=== PATIENT | male | born 1945 | race Caucasian/White ===

== ENCOUNTER 2017-09-23 13:34 | Outpatient (CLI) | payer MEDICARE ==
--- NOTE | 2017-09-23 14:19 | RAD ---
TWO VIEWS CHEST: Comparison: 09-04-17 History: Dyspnea. FINDINGS: Two views of the chest shows a normal sized cardiomediastinal silhouette. There appears to be a calci fication best seen over the right chest measuring 15 mm in size. This may be within one of the ribs. There is no evidence of consolidation or pleural effusion. Degenerative changes are seen in the spine . IMPRESSION: No evidence of acute cardiopulmonary disease. POS: [facility]
== END 2017-09-23 13:35 | disposition home or self-care (01) ==
LOC: RAD 13:34
PROVIDERS: ATTEND Internal Medicine Pulmonary Disease
DX: R06.00 Dyspnea, unspecified (principal)
CPT/HCPCS: 71046

== ENCOUNTER 2018-01-22 12:53 | Outpatient (CLI) | payer MEDICARE ==
--- NOTE | 2018-01-22 14:30 | RAD ---
TWO VIEWS CHEST: HISTORY: Dyspnea. FINDINGS: PA and lateral views of the chest are obtained. Comparison is made to previous exam from 09/23/2017. Two views chest demonstrate a granuloma in the left upper lobe unchanged since the previous exam. No other acute abnormality is seen. No evidence of effusions, pneumonia, or pneumothorax seen. IMPRESSION: Unremarkable 2 views chest, stable since the previous comparison exam. POS: [facility]
== END 2018-01-22 12:54 | disposition home or self-care (01) ==
LOC: RAD 12:53
PROVIDERS: ATTEND Internal Medicine Pulmonary Disease
DX: R06.00 Dyspnea, unspecified (principal)
CPT/HCPCS: 71046

== ENCOUNTER 2018-07-22 10:02 | Outpatient (CLI) | payer MEDICARE ==
--- NOTE | 2018-07-22 10:24 | RAD ---
EXAM: Chest 2 views: HISTORY: Dyspnea COMPARISON: 01/22/2018 FINDINGS: There is a normal-sized cardiomediastinal silhouette. There is no evidence of consolidation, mass, or pleural effusion. A stable hyperdense lesion projecting over the left chest wall likely represents an anterolateral rib lesion. IMPRESSION: No evidence of acute cardiopulmonary disease
== END 2018-07-22 10:03 | disposition home or self-care (01) ==
LOC: RAD 10:02
PROVIDERS: ATTEND Internal Medicine Pulmonary Disease
DX: R06.00 Dyspnea, unspecified (principal)
CPT/HCPCS: 71046

== ENCOUNTER 2019-01-18 10:14 | Outpatient (CLI) | payer MEDICARE ==
--- NOTE | 2019-01-18 10:36 | RAD ---
EXAM: Chest 2 views: HISTORY: Dyspnea COMPARISON: 07/22/2018 FINDINGS: There is a normal-sized cardiomediastinal silhouette. There is no evidence of consolidation, mass, or pleural effusion. Degenerative changes are seen in the spine. IMPRESSION: No evidence of acute cardiopulmonary disease
== END 2019-01-18 10:15 | disposition home or self-care (01) ==
LOC: RAD 10:14
PROVIDERS: ATTEND Internal Medicine Pulmonary Disease
DX: R06.00 Dyspnea, unspecified (principal)
CPT/HCPCS: 71046

== ENCOUNTER 2020-01-03 09:52 | Outpatient (CLI) | payer MEDICARE ==
--- NOTE | 2020-01-03 10:21 | RAD ---
EXAM: Chest 2 views: HISTORY: Dyspnea COMPARISON: 01/18/2019, 09/23/2017 FINDINGS: There is a normal-sized cardiomediastinal silhouette. There is no evidence of consolidation, mass, o r pleural effusion. There is a stable 2.0 cm density projecting over the midportion of the left chest. This likely represents a rib lesion. Degenerative changes are seen in the spine. IMPRESSION: No evidence of acute cardiopulmonary disease
== END 2020-01-03 09:53 | disposition home or self-care (01) ==
LOC: BICRAD 09:52
PROVIDERS: ATTEND Internal Medicine Pulmonary Disease
DX: R06.00 Dyspnea, unspecified (principal)
CPT/HCPCS: 71046

== ENCOUNTER 2020-03-20 08:09 | Outpatient (CLI) | payer MEDICARE ==
[2020-03-20 14:48] LABS: Hemoglobin 15.4 g/dL (14.0-18.0); Mean Corpuscular Hemoglobin 32.9 PG (27.0-33.0); Mean Corpuscular Volume 96.8 fl (80.0-100.0); Mean Platelet Volume 11.5 fl (7.4-10.4); Platelet Count 163 10x3/uL (130-400); Red Blood Cell (RBC) Count 4.68 10x6/uL (4.40-5.80); White Blood Cell (WBC) Count 4.8 10x3/uL (4.5-11.0)
[2020-03-20 14:57] LABS: Anion Gap 15 mmol/L (10-20); BUN (Urea Nitrogen) 17 mg/dL (8.4-25.7); Calc. Creatinine Clearance 0 mL/min (70-130); Calcium 9.5 mg/dL (7.8-10.44); Carbon Dioxide 22 mmol/L (23-31); Chloride 103 mmol/L (98-107); Glucose 100 mg/dL (83-110); Potassium 4.1 mmol/L (3.5-5.1); Sodium 136 mmol/L (136-145)
[2020-03-20 15:10] LABS: Bilirubin Neg (Negative); Blood, Urine Negative (Negative); Glucose, Urine (Dipstick) Normal (Negative); Ketone, Urine Negative (Negative); Leukocyte Negative (Negative); Nitrite Negative (Negative); Protein, Urine (Dipstick) Negative (Neg-Trace); Specific Gravity, Urine 1.015 (1.002-1.036); Urobilinogen Normal mg/dL (Less than 2)
[2020-03-20 15:46] LABS: Clarity Clear (Clear)
[2020-03-21 06:06] LABS: SARS-CoV-2 MS2 Positive; SARS-CoV-2 N Gene Negative; SARS-CoV-2 S Gene Negative; SARS-CoV-2 by NAA Not Detected (NotDetected); SARS-CoV-2 orf1ab Negative
== END 2020-03-20 08:10 | disposition home or self-care (01) ==
LOC: LABBT 08:09
PROVIDERS: ATTEND Urology
DX: Z01.818 Encounter for other preprocedural examination (principal); Z20.822 Contact with and (suspected) exposure to COVID-19; N40.1 Benign prostatic hyperplasia with lower urinary tract symptoms
CPT/HCPCS: 80048; 81003; 85027; 87086; 93005; U0003; 87635; 93010

== ENCOUNTER 2020-03-23 06:29 | Day surgery (SDC) | payer MEDICARE ==
[2020-03-21 12:47] VITALS: BMI 28.6
[2020-03-23] MEDS ORDERED: Levofloxacin 500 mg/D5W 100 ml Premix Bag ONE (06:53)
[2020-03-23] MEDS ORDERED: Fentanyl 100 MCG/2 ML VIAL ONE (08:24)
[2020-03-23] MEDS ORDERED: Famotidine/PF 20 mg/2ml Vial ONE (08:24)
[2020-03-23] MEDS ORDERED: Midazolam HCl 2 mg/2 ml Vial ONE (08:24)
[2020-03-23] MEDS ORDERED: Ketorolac Tromethamine 30 MG/ML VIAL ONE (09:31)
[2020-03-23] MEDS ORDERED: Oxybutynin 5 MG TAB ONE (09:32)
[2020-03-23] MEDS ORDERED: Phenazopyridine HCl 100 MG TAB ONE (09:33)
--- NOTE | 2020-03-23 09:33 | OP ---
DATE OF PROCEDURE: 03/23/2020 PREOPERATIVE DIAGNOSIS: Enlarged prostate with lower urinary tract symptoms. POSTOPERATIVE DIAGNOSIS: Enlarged prostate with lower urinary tract symptoms. PROCEDURE PERFORMED: Cystoscopy with UroLift. ANESTHESIA: TIVA. COMPLICATIONS: None. BLOOD LOSS: Minimal. SPECIMEN: None. DESCRIPTION OF PROCEDURE: After informed consent, the patient was taken to the operating room, transferred to the table on his own power. Anesthesia was established. A time-out was performed ensuring correct patient, site, and procedure. Preoperative antibiotics were administered. He was prepped and draped in the lithotomy position. The rigid cystoscope was advanced through the urethra noting normal course and caliber of the urethra, into the prostate noting coapting lateral lobes and moderate bladder neck obstruction. The bladder was entered and systematically examined, noting no mucosal abnormalities. Both ureters normal in appearance with moderate trabeculation throughout. I began by deploying two bladder neck implants, one on the left, one on the right, followed by two implants at the level of the verumontanum. He had persistent obstruction at the bladder neck, mainly from the right side and so a third implant was placed here. He then required an implant in the mid prostate on the right side. At this point, he had an excellent channel throughout the prostate with clear view into the bladder. He had developed some bleeding from the anterior commissure of the prostate and so I elected to place an 18-Turkmen coude catheter with 15 mL instilled in the balloon. This was connected to leg bag. Urine was mildly hematuric as we finished the case. He was awoken from anesthesia, transferred back to his hospital bed and taken to PACU in stable condition, where he will discharge home upon recovery with plans to follow up on Thursday for catheter removal. Job ID: [id number]
[2020-03-23] MEDS ORDERED: Lidocaine 1% PF 5 ML VIAL ONE (09:34)
[2020-03-23] MEDS ORDERED: PROPOFOL 200 MG/20 ML VIAL ONE (09:34)
[2020-03-23] MEDS ORDERED: Ondansetron PF 4 MG/2 ML Vial ONE (09:34)
== END 2020-03-23 10:59 | disposition home or self-care (01) ==
LOC: SDC 06:29
PROVIDERS: ATTEND Urology
PROC: 0T7D8DZ Dilation of Urethra with Intraluminal Device, Via Natural or Artificial Opening Endoscopic (ICD-10-PCS; principal; 2020-03-23)
DX: N40.1 Benign prostatic hyperplasia with lower urinary tract symptoms (principal); N13.8 Other obstructive and reflux uropathy; E78.5 Hyperlipidemia, unspecified
CPT/HCPCS: C1889; C9740; J1885; J1956; J2250; J3010; S0028

== ENCOUNTER 2020-03-26 17:36 | Emergency (ER) | payer MEDICARE ==
[2020-03-26 18:27] LABS: #Eosinphils 0.2 thou/uL (0.0-0.7); #Lymphocytes 1.1 thou/uL (1.20-3.40); #Monocytes 0.5 thou/uL (0.11-0.59); #Neutrophils 4.4 thou/uL (1.40-6.50); %Basophils 0.4 % (0.0-1.0); %Eosinophils 2.5 % (0.0-10.0); %Lymphocytes 17.6 % (21.0-51.0); %Monocytes 8.4 % (0.0-10.0); %Neutrophils 71.1 % (42.0-75.0); Hemoglobin 16.8 g/dL (14.0-18.0); Mean Corpuscular Hemoglobin 33.9 pg (27.0-31.0); Mean Corpuscular Volume 96.8 fL (78.0-98.0); Mean Platelet Volume 8.5 fL (7.4-10.4); Platelet Count 184 thou/uL (130-400); RBC Distribution Width 11.4 % (11.5-14.5); Red Blood Cell (RBC) Count 4.97 mill/uL (4.70-6.10); White Blood Cell (WBC) Count 6.2 thou/uL (4.8-10.8)
[2020-03-26 18:49] LABS: ALT (SGPT) 25 U/L (8-55); AST (SGOT) 28 U/L (5-34); Albumin 4.8 g/dL (3.4-4.8); Alkaline Phosphatase 59 U/L (40-110); Anion Gap 16 mmol/L (10-20); BUN (Urea Nitrogen) 17 mg/dL (8.4-25.7); Calc. Creatinine Clearance 0 mL/min (70-130); Calcium 9.7 mg/dL (7.8-10.44); Carbon Dioxide 21 mmol/L (23-31); Chloride 101 mmol/L (98-107); Globulin 3.7 g/dL (2.4-3.5); Glucose 115 mg/dL (83-110); Protein, Total 8.5 g/dL (5.8-8.1); Sodium 134 mmol/L (136-145)
== END 2020-03-26 20:10 | disposition home or self-care (01) ==
LOC: ERS 17:36
DX: R33.9 Retention of urine, unspecified (principal); I10 Essential (primary) hypertension
CPT/HCPCS: 36415; 51702; 80053; 85025

== ENCOUNTER 2021-01-02 09:57 | Outpatient (CLI) | payer MEDICARE | END 2021-01-02 09:58 | disposition home or self-care (01) | LOC: RAD 09:57 | PROVIDERS: ATTEND Internal Medicine Pulmonary Disease | DX: R06.00 Dyspnea, unspecified (principal) | CPT/HCPCS: 71046 ==

== ENCOUNTER 2022-04-18 08:55 | Outpatient (CLI) | payer MEDICARE | END 2022-04-18 08:56 | disposition home or self-care (01) | LOC: RAD 08:55 | PROVIDERS: ATTEND Internal Medicine Critical Care Medicine | DX: R91.1 Solitary pulmonary nodule (principal) | CPT/HCPCS: 71046 ==